=== PATIENT | male | born 1985 | race Caucasian/White ===

== ENCOUNTER 2023-10-15 14:03 | Emergency (ER) | payer BC, SELFPAY ==
[2023-10-15 14:11] VITALS: BP 181/109; PULSE 89; RESP 16; TEMP 36.6; O2SAT 99; BMI 37.3
--- NOTE | 2023-10-15 14:31 | ED.GENADULT ---
HPI - General Adult General Chief complaint: Ear/Nose/Throat Problem Stated complaint: Right ear pain Time Seen by Provider: 10/15/23 14:22 Source: patient and RN notes reviewed Mode of arrival: ambulatory Limitations: no limitations History of Present Illness HPI narrative: Patient is a 38-year-old male, denies prior health history, who says for the past week and half for so he had felt like he had some wax in his left ear so he had been using drops for wax. A couple of days ago he developed pain, he describes it is aching moderate in intensity, improved with ibuprofen. No fevers. Did have some cold symptoms a couple weeks prior to that. Hearing is decreased in that ear at present. Denies prior health history or allergies. Related Data Home Medications Medication Instructions Recorded Confirmed No Known Home Medications 10/15/23 10/15/23 Allergies Allergy/AdvReac Type Severity Reaction Status Date / Time No Known Drug Allergies Allergy Verified 10/15/23 14:15 Review of Systems Status of ROS: Reports: 6 or more systems reviewed and unremarkable except as noted in History and below Exam Narrative: Exam Narrative: Vital signs reviewed. He is hypertensive. In general, alert, nontoxic male. Looks comfortable. Eyes: Sclera clear. ENT: Right TM is normal, there is a little bit of wax in the canal. The left canal is clear, the TM is erythematous and purulent, landmarks not seen. Neck: Supple without adenopathy. Skin: Warm dry well perfused. Const: Vital Signs, click to edit/add: Vital Signs - 24 hr 10/15/23 14:11 Temperature 97.8 F Pulse Rate [Left P ulse Oximeter] 89 Respiratory Rate 16 Blood Pressure [Le ft Upper Arm] 181/109 H Pulse Oximetry 99 Oxygen Delivery Me thod Room Air Documenting provider has reviewed patient's vital signs: yes Course Course ED Course: Left otitis media, no evidence of otitis externa, mastoiditis etcetera. Nontoxic. I do think with persistence of symptoms over the past couple of days an antibiotic is reasonable. Continue with ibuprofen or Tylenol. Recommend recheck with primary care in a week or 2 for blood pressure recheck. Should be recheck for the ear if not improving despite treatment over the next couple of days. Return any time for acute worsening. Vital Signs Vital signs: Initial Vital Signs Temperature 97.8 F 10/15/23 14:11 Temperature Source Temporal Artery Scan 10/15/23 14:11 Pulse Rate 89 10/15/23 14:11 Pulse Rhythm Regular 10/15/23 14:11 Pulse Strength 3+ Normal 10/15/23 14:11 Respiratory Rate 16 10/15/23 14:11 Blood Pressure 181/109 H 10/15/23 14:11 Blood Pressure Mean 133 H 10/15/23 14:11 Blood Pressure Position Sitting 10/15/23 14:11 Pulse Oximetry 99 10/15/23 14:11 Oxygen Delivery Method Room Air 10/15/23 14:11 Vital Signs Temperature 97.8 F 10/15/23 14:11 Pulse Rate 89 10/15/23 14:11 Respiratory Rate 16 10/15/23 14:11 Blood Pressure 181/109 H 10/15/23 14:11 Pulse Oximetry 99 10/15/23 14:11 Oxygen Delivery Method Room Air 10/15/23 14:11 Temperature 97.8 F 10/15/23 14:11 Pulse Rate 89 10/15/23 14:11 Respiratory Rate 16 10/15/23 14:11 Blood Pressure 181/109 H 10/15/23 14:11 Pulse Oximetry 99 10/15/23 14:11 Oxygen Delivery Method Room Air 10/15/23 14:11 Discharge Plan Discharge Clinical Impression: Otitis media Patient Disposition: Home, Self-Care Condition: Stable Instructions: Ear Infection (ED) Additional Instructions: Antibiotic as prescribed. Many ear infections are caused by viruses, but given duration of symptoms I think an antibiotic is reasonable. Regardless of the cause of your ear infection, you should be feeling better by the end of the week. If you have persistent pain despite treatment you should be seen again. Your blood pressure is somewhat elevated here, would recommend that your seen in follow-up for recheck in the next couple of weeks. You can see 1 of our clinic doctors if you like, 507 schedule. Ibuprofen or Tylenol as needed for pain. Prescriptions: No Action No Known Home Medications Stand Alone Forms: MyHealth Info Instructions
== END 2023-10-15 14:41 | disposition home or self-care (01) ==
LOC: ED 14:37
PROVIDERS: Emergency Provider Emergency Medicine
DX: H66.92 Otitis media, unspecified, left ear (principal)
CPT/HCPCS: 99283; 99284

== ENCOUNTER 2024-01-26 08:34 | Outpatient (CLI) | payer BC, SELFPAY ==
--- OUTSIDE RECORDS SUMMARY | 2024-01-26 08:39 | XMS_ITS | Clinical Summary ---
Author Organization [employer] [facility] Address [place], [place] [address] Care Team Providers Care Seismograph Computer Name Role Phone Pcp, No Primary Care Provider Unavailabl e Allergies No known active allergies Social History Tobacco Use Types Packs/Day Years Used Date Smoking Tobacco: Never Assessed Social Connections Answer Date Recorded Frequency of Communication with Friends and Fami ly Not on file 08/04/2021 Financial Resource Strain Answer Date R ecorded Difficulty of Paying Living Expenses Not on file 08/04/2021 Difficulty of Paying Living Expenses Not on file 08/04/2021 Sex and Gender Information Value Date Recorded Sex Assigned at Not on file Gender Identity Not on file Sexual Orientation Not on file Last Filed Vital Signs Vital Sign Reading Time Taken Comments Blood Pressure 161/102 11/16/2021 7:30 PM CDT Pulse 91 11/16/2021 7:30 PM CDT Temperature 36.8 ??C (98.3 ??F) 11/16/2021 7:30 PM CD T Respiratory Rate 18 11/16/2021 7:30 PM CDT Oxygen Saturation 99% 11/16/2021 7:30 PM CDT Inhaled Oxygen Concentration - - Weight 111.1 kg (245 lb) 11/16/2021 7:30 PM CDT Height 170.2 cm (5' 7) 11/16/2021 7:30 PM CDT Body Mass Index 38.37 11/16/2021 7:30 PM CDT Plan of Treatment Health Maintenance Due Date Last Done Comments Tdap 1994 Depression screening for age 12+ 1995 HIV for age 15-65 1998 BMI (ht and wt on same day) for age 18+ 2001 Hepatitis C screening for ag e 18-79 2001 Tetanus booster 2003 Lipids for age 35-44 2018 COVID-19 vaccine series (2022- season) 2023 Influenza for age 9-49 04/04/2024 Pneumococcal series for age 6-64 Aged Out No longer eligible based on patient's age to complete this topic Care Teams Seismograph Computer Relationship Specialty Start Date End Date Pcp, No . PCP - General 07/07/16
== END 2024-01-26 08:35 | disposition home or self-care (01) ==
PROVIDERS: PCP Family Medicine; Visit Provider Family Medicine
DX: Z13.220 Encounter for screening for lipoid disorders (principal); Z13.1 Encounter for screening for diabetes mellitus
CPT/HCPCS: 80053; 80061

== ENCOUNTER 2024-02-16 09:23 | Outpatient (CLI) | payer BC, SELFPAY ==
--- OUTSIDE RECORDS SUMMARY | 2024-02-16 13:12 | XMS_ITS | Clinical Summary ---
Author Organization [facility] [facility] Address [place], [place] [address] Care Team Providers Care Tipple Worker Name Role Phone Pcp, No Primary Care [...] age to complete this topic Care Teams Tipple Worker Relationship Specialty Start Date End Date Pcp, No . PCP - General 07/07/16
== END 2024-02-16 09:24 | disposition home or self-care (01) ==
LOC: NFLDREF 13:11
PROVIDERS: PCP Family Medicine; Referring Provider Family Medicine; Visit Provider Family Medicine
DX: E11.9 Type 2 diabetes mellitus without complications (principal); R73.9 Hyperglycemia, unspecified
CPT/HCPCS: 82947

== ENCOUNTER 2024-04-02 15:55 | Emergency (ER) | payer BC, SELFPAY ==
[2024-04-02 15:58] VITALS: BP 143/82; PULSE 99; RESP 20; TEMP 36.4; O2SAT 97
--- NOTE | 2024-04-02 16:07 | ED_ITS ---
HPI - Dental/Oral General Time Seen by Provider: 16:07 Date Seen: 04/02/24 Chief complaint: Dental/Oral/Mouth Injury/Pain Stated complaint: mouth swelling Time Seen by Provider: 04/02/24 16:06 Source: patient, RN notes reviewed and old records reviewed Mode of arrival: ambulatory Limitations: no limitations History of Present Illness HPI Narrative: 38y/o male who presents with mild left side jaw pain starting last night. Has had similar in the past treated with amoxicillin. Denies fever chills, says he is being ?tested for diabetes?. No swallowing difficulty, no sore throat, no dental pain. Related Data Previous Rx's ?Medication ?Instructions ?Recorded Blood Glucose Meter #1 ea 02/18/24 Diabetic Test Strips #100 ea 02/18/24 atorvastatin 20 mg tablet 20 mg PO QHS #90 tabs 02/18/24 lancets 28 gauge (CareTouch Safety #100 ea 02/18/24 Lancets) Allergies Allergy/AdvReac Type Severity Reaction Status Date / Time No Known Drug Allergies Allergy Verified 02/18/24 13:16 [facility] Surgical History (Updated 01/26/24 @ 11:17 by Ike Hawthorne MD) Hx of abdominal surgery ?Z98.890 - Other specified postprocedural states (ICD-10) Social History (Updated 01/26/24 @ 12:56 by Milly Balderas~[facility], [facility]) What is your current living situation?: I presently have a place to live Problems where you live: declined to answer In the past 12 months, utilities in danger of being shut off: no In past 12 months, lack of transportation kept you from medical appts, meetings, work, or getting things needed for daily living: no In the past 12 mos, have been you worried that your food would run out before you had money to buy more?: sometimes true In the past 12 mos, the food you bought just didn't last and you didn't have money to buy more?: sometimes true Smoking Status: Current every day smoker What tobacco products do you use: cigarettes Smoking packs per day: 1 Smoking cigarettes per day: 20.0 Second hand tobacco smoke exposure: No How often do you have a drink containing alcohol: never How often do you have six or more drinks on one occasion: Never AUDIT-C Alcohol total score: 0 Non-prescribed substance use: marijuana (any form) How often does anyone, including family, friends and others, physically hurt you : never How often does anyone, including family, friends and others, insult or talk down to you: rarely How often does anyone, including family, friends and others, threaten you with harm: never How often does anyone, including family, friends and others, scream or curse at you: rarely service: No Exam Narrative: Exam Narrative: General: well nourished , NAD Head: Atraumatic and normocephalic ENT: External ears and external nose are normal. Swelling along the left mandible, diffusely poor dentition. Eyes: Conjunctiva clear, pupils are equal reactive, external ocular motions are intact Neck: Full spontaneous range of motion of the neck Lungs: No respiratory distress Musculoskeletal: No tenderness or deformity Neurologic: No gross focal neurologic deficits Skin: No rashes Psych: Mood and affect are appropriate Const: Vital Signs, click to edit/add: Vital Signs - 24 hr 04/02/24 15:58 Temperature 97.6 F Pulse Rate [Pulse Oximeter] 99 Respiratory Rate 20 Blood Pressure [Ri ght Upper Arm] 143/82 H Pulse Oximetry 97 Oxygen Delivery Me thod Room Air Course Course ED Course: Reviewed most recent primary care visit from February 2024 for for follow-up of diabetes, hemoglobin A1c is 13.4 at that visit. Patient does smoke cigarettes. Presents today with left jaw swelling starting yesterday. No dental pain although diffusely poor dentition. No definite fluid collection on exam and bedside ultrasound does not demonstrate drainable fluid collection. Patient was started on Augmentin and discharged. Vital Signs Vital signs: Initial Vital Signs Temperature 97.6 F 04/02/24 15:58 Temperature Source Temporal Artery Scan 04/02/24 15:58 Pulse Rate 99 04/02/24 15:58 Respiratory Rate 20 04/02/24 15:58 Blood Pressure 143/82 H 04/02/24 15:58 Blood Pressure Mean 102 04/02/24 15:58 Blood Pressure Position Sitting 04/02/24 15:58 Pulse Oximetry 97 04/02/24 15:58 Oxygen Delivery Method Room Air 04/02/24 15:58 Vital Signs Temperature 97.6 F 04/02/24 15:58 Pulse Rate 99 04/02/24 15:58 Respiratory Rate 20 04/02/24 15:58 Blood Pressure 143/82 H 04/02/24 15:58 Pulse Oximetry 97 04/02/24 15:58 Oxygen Delivery Method Room Air 04/02/24 15:58 Temperature 97.6 F 04/02/24 15:58 Pulse Rate 99 04/02/24 15:58 Respiratory Rate 20 04/02/24 15:58 Blood Pressure 143/82 H 04/02/24 15:58 Pulse Oximetry 97 04/02/24 15:58 Oxygen Delivery Method Room Air 04/02/24 15:58 Discharge Plan Discharge Clinical Impression: Abscess, dental, Cellulitis of face Patient Disposition: Home, Self-Care Condition: Stable Instructions: Dental Abscess (ED), Cellulitis (ED) Additional Instructions: Take antibiotics as prescribed Warm packs, Tylenol ibuprofen as needed Activity Level: Activity as Tolerated Discharge Diet: Regular Prescriptions: No Action (DME) Blood Glucose Meter Misc See Rx Instructions .ROUTE .MEDSUPPLY Qty: 1 0RF Rx Instructions: As directed (DME) Diabetic Test Strips Misc See Rx Instructions .ROUTE .MEDSUPPLY Qty: 100 3RF Rx Instructions: bid prn (DME) lancets [CareTouch Safety Lancets] 28 gauge misc See Rx Instructions .ROUTE .MEDSUPPLY Qty: 100 3RF Rx Instructions: As directed atorvastatin 20 mg tablet 20 mg PO QHS Qty: 90 3RF Follow Up/Referrals: Ike Hawthorne MD [Primary Care Provider] - Stand Alone Forms: MyHealth Info Instructions
--- OUTSIDE RECORDS SUMMARY | 2024-04-02 16:42 | XMS_ITS | Clinical Summary ---
Author Organization [facility] [facility] Address [place], [place] [address] Care Team Providers Care Engineering Technician Parking Name Role Phone Pcp, No Primary Care [...] age to complete this topic Care Teams Engineering Technician Parking Relationship Specialty Start Date End Date Pcp, No . PCP - General 07/07/16
== END 2024-04-02 17:06 | disposition home or self-care (01) ==
LOC: ED 16:40
PROVIDERS: Emergency Provider Family Medicine; PCP Family Medicine
DX: L02.91 Cutaneous abscess, unspecified (principal); K12.2 Cellulitis and abscess of mouth
CPT/HCPCS: 99283; 99284